=== PATIENT | female | born 1980 | race Caucasian/White ===

== ENCOUNTER 2016-12-26 09:56 | Emergency (ER) | payer MEDICAID, OTHER ==
--- NOTE | 2016-12-26 10:13 | ED Physician Documentation ---
General Adult - HISTORIAN Historian: patient - HPI Stated Complaint: dental pain Chief Complaint: General Adult Onset: days ago Timing: still present Severity: moderate Further Comments: yes (Pt is a 36 yo female with dental pain on the L side. Pt has poor dentition with caries in both upper and lower L molars.) - ROS CONST: no problems EYES/ENT: other (dental pain) CVS/RESP: none GI/: none MS/SKIN/LYMPH: none - PAST HX Past History: other (anxiety, migraines, ) Surgeries/Procedures: cholecystectomy, other (d&c, b/l partial mastectomy due to infected cysts.) Allergies/Adverse Reactions: Allergies Allergy/AdvReac Type Severity Reaction Status Date / Time clindamycin AdvReac Generalized Verified 12/26/16 10:11 Redness Home Medications: Ambulatory Orders Medication Instructions Recorded Clonazepam [Klonopin] 1 mg PO BID 12/26/16 Topiramate [Topamax] 25 mg PO BID 12/26/16 Trazodone HCl [Desyrel] 100 mg PO HS 12/26/16 Venlafaxine HCl [Effexor Xr] 75 mg PO DAILY 12/26/16 - SOCIAL HX Smoking History: cigarettes - FAMILY HX Family History: No - REVIEWED ASSESSMENTS Nursing Assessment Reviewed: Yes Vitals Reviewed: Yes Progress - Progress Progress: Rx Penicillin VK 500 mg. Take one every 8 hrs for 10 days. 1 RF Rx [place] (5/325). Take one or two tablets by mouth every 4 to 6 hrs as needed for moderate to severe pain. General Adult Physical Exam - PHYSICAL EXAM GENERAL APPEARANCE: mild distress EENT: other (dental caries, tenderness, L upper & lower molars) NECK: normal inspection, supple RESPIRATORY: no resp distress, chest non-tender CVS: reg rate & rhythm, heart sounds normal BACK: normal inspection SKIN: warm/dry, normal color EXTREMITIES: non-tender, normal range of motion, no evidence of injury, no edema NEURO: oriented X3, motor nml, sensation nml Discharge Clincal Impression: Pain, dental Referrals: Primary Doctor,No [Primary Care Provider] - Condition: Good Disposition: 01 HOME, SELF-CARE Decision to Admit: NO Decision Time: 10:13
[2016-12-26 10:16] VITALS: BP 136/91
== END 2016-12-26 10:25 | disposition home or self-care (01) ==
LOC: ED 09:56 → EDSTATUS 09:57 → ED 10:25
DX: K08.89 Other specified disorders of teeth and supporting structures (principal)
CPT/HCPCS: 99283

== ENCOUNTER 2017-01-27 12:10 | Emergency (ER) | payer MEDICAID, OTHER ==
--- NOTE | 2017-01-27 12:19 | ED Physician Documentation ---
General Adult - HISTORIAN Historian: patient - HPI Stated Complaint: right upper arm/axilla pain for 2 days ago Chief Complaint: Upper Extremity Injury Onset: days ago (2) Timing: still present, worse Severity: moderate Modifying Factors: with clothes touching the area she has incrased pain and touch Quality: sharp Location: right upper arm and and axilla Further Comments: yes (she notes she has had a history of infectious cysts and had part of her breasts removed in regards to this) Last known Well Date: 01/25/17 Last Known Well Time: 08:00 Last known Well Code/Unknown Code: Unknown - ROS CONST: denies: fever, recent illness EYES/ENT: denies: problems with vision, sore throat, nasal drainage CVS/RESP: chest pain (she has had a recent cardiac work up ) GI/: nausea, diarrhea. denies: abdominal pain, problems urinating, vomiting MS/SKIN/LYMPH: other (the right upper chest/breast does have some mild swelling ) - PAST HX Past History: other (depression and anxiety ) Other History: other (bilateral partial mastectomy for cysts ) Surgeries/Procedures: other Immunizations: referred to PCP Allergies/Adverse Reactions: Allergies Allergy/AdvReac Type Severity Reaction Status Date / Time clindamycin AdvReac Generalized Verified 01/27/17 12:38 Redness Home Medications: Ambulatory Orders Medication Instructions Recorded Clonazepam [Klonopin] 1 mg PO BID 12/26/16 Topiramate [Topamax] 25 mg PO BID 12/26/16 Trazodone HCl [Desyrel] 100 mg PO HS 12/26/16 Venlafaxine HCl [Effexor Xr] 75 mg PO DAILY 12/26/16 - SOCIAL HX Smoking History: non-smoker Drug Use: none - FAMILY HX Family History: No - VITAL SIGNS Vital Signs: Vital Signs Temp Pulse Resp BP Pulse Ox 136/91 12/26/16 10:25 - REVIEWED ASSESSMENTS Nursing Assessment Reviewed: Yes Vitals Reviewed: Yes ED Results Lab/Radiology - Radiology Radiology Impressions: Examination: PA and lateral chest. History: Evaluate lung brown. Findings: PA lateral chest demonstrate a normal cardiac and mediastinal silhouette. No focal infiltrate. No blunting of the costophrenic margins. Osseous structures are appropriate for age. Impression: No acute pulmonary process. Electronically signed on Jan 27, 2017 1:09:23 PM FREIGHT CONDUCTOR by: Oren Fox Examination: Ultrasound vein. History: Upper extremity swelling Comparison exams: None provided Findings: Sonographic evaluation of the upper extremity venous system including the internal jugular, subclavian, axillary, cephalic, brachial, basilic, radial , and ulnar veins. No evidence for luminal filling defect. Normal compressibility. Normal response to augmentation and respiratory variation. Impression: No evidence for venous thrombosis. Electronically signed on Jan 27, 2017 1:32:59 PM FREIGHT CONDUCTOR by: Oren Fox General Adult Physical Exam - PHYSICAL EXAM GENERAL APPEARANCE: no distress EENT: eye inspection normal RESPIRATORY: no resp distress, chest non-tender, breath sounds normal CVS: reg rate & rhythm, heart sounds normal, equal pulses, no murmur ABDOMEN: soft, no organomegaly, normal bowel sounds BACK: normal inspection SKIN: other (upper right arm/axilla area with mild swelling - pain to touch, pain down arm to wrist - pain with pronation of wrist to mid arm ) EXTREMITIES: normal range of motion NEURO: oriented X3, CN's nml as tested, motor nml Discharge Referrals: Primary Doctor,No [Primary Care Provider] - 2 Days
[2017-01-27 13:28] LABS: BASOPHILS % 0.5 (0.0-1.5); EOSINOPHILS % 2.2 % (0.0-6.8); MEAN CORPUSCULAR HEMOGLOBIN 27.1 pg (28.0-34.0); MEAN CORPUSCULAR VOLUME 83.5 fl (80.0-100.0); MONOCYTES % 3.1 % (0.0-11.0)
[2017-01-27 13:44] LABS: eGFR (African) > 60; eGFR (Non-African) > 60
[2017-01-27] MEDS: KETOROLAC TROMETHAMINE 30 MG/1ML VIAL IVP ONE (13:44)
[2017-01-27] MEDS: methylPREDNISolone SOD SUCC 125 MG/2 ML VIAL IVP ONE (13:44)
[2017-01-27 13:59] VITALS: BP 130/87
--- NOTE | 2017-01-27 15:39 | Diagnostic Imaging Report ---
MADHAVI ALEXANDER [facility] [address] [facility] [address] [address] Report Submission Date: Jan 27, 2017 1:32:59 PM OBSTETRICS TECHNICIAN Patient Study Name: WILLIAM HARRIS Date: Jan 27, 2017 1:02:40 PM OBSTETRICS TECHNICIAN Modality Type: US Gender: F Description: UNILAT LTD STDY EXT VEINS : 82 Institution: [facility] Physician: MADHAVI ALEXANDER Examination: Ultrasound vein. History: Upper extremity swelling Comparison exams: None provided Findings: Sonographic evaluation of the upper extremity venous system including the internal jugular, subclavian, axillary, cephalic, brachial, basilic, radial , and ulnar veins. No evidence for luminal filling defect. Normal compressibility. Normal response to augmentation and respiratory variation. Impression: No evidence for venous thrombosis. Electronically signed on Jan 27, 2017 1:32:59 PM OBSTETRICS TECHNICIAN by: Oren RIVERS
--- NOTE | 2017-01-27 15:41 | Diagnostic Imaging Report ---
MADHAVI ALEXANDER [facility] [address] [facility] [address] [place], [place]. [address] Report Submission Date: Jan 27, 2017 1:09:23 PM CLEANING MACHINE OPERATOR Patient Study Name: WILLIAM HARRIS Date: Jan 27, 2017 12:55:35 PM CLEANING MACHINE OPERATOR Modality Type: CR Gender: F Description: CHEST : 82 Institution: [facility] Physician: MADHAVI ALEXANDER Examination: PA and lateral chest. History: Evaluate lung brown. Findings: PA lateral chest demonstrate a normal cardiac and mediastinal silhouette. No focal infiltrate. No blunting of the costophrenic margins. Osseous structures are appropriate for age. Impression: No acute pulmonary process. Electronically signed on Jan 27, 2017 1:09:23 PM CLEANING MACHINE OPERATOR by: Oren RIVERS
== END 2017-01-27 13:57 | disposition home or self-care (01) ==
LOC: ED 12:10
DX: M79.621 Pain in right upper arm (principal)
CPT/HCPCS: 71020; 80053; 85025; 85379; 93971; J1885; J2930; 96372; 99283; S1016

== ENCOUNTER 2017-05-18 08:06 | Emergency (ER) | payer MEDICAID, OTHER ==
--- NOTE | 2017-05-18 08:16 | ED Physician Documentation ---
General Adult - HISTORIAN Historian: patient - HPI Chief Complaint: Abdominal Pain Additional Information: About 10 days ago developed some diarrhea and fever/chills. No blood noted. Over the last 3-4 days the diarrhea is improved. Has had normal BM since then. Has devleoped some abd cramping in the lower abd area bilater. Dull achy sensation all the time but will cramp up for about one minute and pain will get to 8-9/10. Patient is still on a bland diet. No urinary problems. Hips feels like she has bruising to the area but not skin changes. Started at the same time. Onset: other (10 days) Timing: still present Severity: moderate Further Comments: no - ROS CONST: fever, sweating, chills EYES/ENT: none CVS/RESP: none. denies: chest pain, shortness of breath GI/: denies: problems urinating, vomiting, nausea, diarrhea MS/SKIN/LYMPH: denies: calf pain NEURO/PSYCH: denies: headache, dizziness - PAST HX Past History: none Other History: none Surgeries/Procedures: cholecystectomy, hysterectomy, other (D&C) Allergies/Adverse Reactions: Allergies Allergy/AdvReac Type Severity Reaction Status Date / Time clindamycin AdvReac Generalized Verified 05/18/17 08:21 Redness Home Medications: Ambulatory Orders Medication Instructions Recorded Clonazepam [Klonopin] 1 mg PO BID 12/26/16 Topiramate [Topamax] 25 mg PO BID 12/26/16 Trazodone HCl [Desyrel] 100 mg PO HS 12/26/16 Venlafaxine HCl [Effexor Xr] 75 mg PO DAILY 12/26/16 - SOCIAL HX Smoking History: non-smoker Alcohol Use: none Drug Use: none - FAMILY HX Family History: No - VITAL SIGNS Vital Signs: Vital Signs Temp Pulse Resp BP Pulse Ox 130/87 01/27/17 13:57 - REVIEWED ASSESSMENTS Nursing Assessment Reviewed: Yes Vitals Reviewed: Yes Progress - Progress Progress: 10:44 Patient has been doing OK, has had a couple of mild cramps 14:00 [facility] contacted to inquire about possible transfer, awaiting call back. 14:11 Transfer excepted. ED Results Lab/Radiology - Radiology Radiology Impressions: Examination: Obstruction series History: PT STATES LOWER ABDOMINAL PAIN X 4 DAYS, DIARRHEA X 5 DAYS (Hx) Findings: 5 views obtained of the chest and abdomen. No focal infiltrate. Normal cardiac silhouette. No abnormal dilation of the large bowel. Single loop of prominent small bowel within the left upper abdomen. Air and stool throughout the large bowel. No suspicious calcification projecting over the renal fossa or the lower pelvic region. Surgical clips right upper quadrant. Articular degenerative changes. Impression: No infiltrate/effusion. Nonspecific prominent loop of small bowel within the left upper abdomen. No obstruction. No suspicious calcifications by plain film sensitivity. Examination: CT Abdomen/pelvis History: LOWER ABD PAIN X 4 DAYS (Hx) Comparison exams: None available Technique: CT Abdomen/pelvis with IV protocol. Findings: Liver demonstrates diffuse low attenuation. No central lesion. Spleen , adrenals, pancreas, and kidneys are without gross irregularity. No abnormal enhancement. Surgical clips gallbladder fossa. 3.5 cm right renal cyst with peripheral calcification. No other suspicious renal calcifications. Ureters are nondilated in their course through the abdomen and pelvis. No central calcifications. Abdominal aorta without aneurysm. Cardiac silhouette is not enlarged. No pericardial effusion. Mildly prominent loops of small bowel within the left midabdomen with air-fluid levels. Stool within the large bowel. Appendix is visualized and is within normal limits. Sigmoid diverticula. Significant inflammatory changes/mucosal thickening involving the sigmoid colon. Adjacent to the mid sigmoidal region is a vague density measuring 2 cm diameter with air centrally. Osseous structures demonstrate mild degenerative spurring. Lung bases demonstrate mild scarring. Linear infiltrate involving the lingula. No effusion. Impression: Sigmoid diverticulitis. Possible perforation with loculated fluid collection/abscess adjacent to the mid aspect of the sigmoid colon. Prominent small bowel with air-fluid levels - functional ileus verses enteritis. Fatty liver. Right renal cyst with peripheral calcification - Bosniak type II cyst. Follow up recommended to confirm stability. Mild lingular infiltrate. No effusion. General Adult Physical Exam - PHYSICAL EXAM GENERAL APPEARANCE: mild distress () EENT: ENT inspection normal NECK: normal inspection, thyroid normal, supple RESPIRATORY: no resp distress, chest non-tender, breath sounds normal. No: wheezes, rales, rhonchi CVS: reg rate & rhythm, heart sounds normal, equal pulses, no murmur, no gallop ABDOMEN: soft, no organomegaly, normal bowel sounds, no abdominal bruit, no distension, tenderness (suprapubic area) BACK: normal inspection, no CVA tenderness SKIN: warm/dry, normal color EXTREMITIES: non-tender NEURO: oriented X3, mood/affect nml, cognition normal Discharge Clincal Impression: Diverticulitis large intestine Qualifiers: Diverticulitis bleeding: without bleeding Diverticulitis complication: with perforation and abscess Qualified Code(s): K57.20 - Diverticulitis of large intestine with perforation and abscess without bleeding Referrals: Michael Sun MD [Primary Care Provider] - 2 Days Condition: Stable Disposition: [facility] Decision to Admit: [id number] Date of Decison to Admit: 05/18/17 Decision Time: 13:38
[2017-05-18 08:20] VITALS: BP 136/81
[2017-05-18] MEDS: 0.9 % SODIUM CHLORIDE 1,000 ML IV SCH (09:00)
[2017-05-18] MEDS: KETOROLAC TROMETHAMINE 30 MG/1ML VIAL IVP ONE (09:00)
--- NOTE | 2017-05-18 09:54 | Diagnostic Imaging Report ---
DYLAN HARRISON [facility] [address] [facility] [address] [address] Report Submission Date: May 18, 2017 9:53:21 AM SITE COORDINATOR Patient Study Name: WILLIAM HARRIS Date: May 18, 2017 9:14:06 AM SITE COORDINATOR Modality Type: DX Gender: F Description: CHEST,ABDOMEN : 82 Institution: [facility] Physician: DYLAN HARRISON Examination: Obstruction series History: PT STATES LOWER ABDOMINAL PAIN X 4 DAYS, DIARRHEA X 5 DAYS (Hx) Findings: 5 views obtained of the chest and abdomen. No focal infiltrate. Normal cardiac silhouette. No abnormal dilation of the large bowel. Single loop of prominent small bowel within the left upper abdomen. Air and stool throughout the large bowel. No suspicious calcification projecting over the renal fossa or the lower pelvic region. Surgical clips right upper quadrant. Articular degenerative changes. Impression: No infiltrate/effusion. Nonspecific prominent loop of small bowel within the left upper abdomen. No obstruction. No suspicious calcifications by plain film sensitivity. Electronically signed on May 18, 2017 9:53:21 AM SITE COORDINATOR by: Oren RIVERS
[2017-05-18 09:56] LABS: BASOPHILS % 0.3 (0.0-1.5); EOSINOPHILS % 0.6 % (0.0-6.8); MEAN CORPUSCULAR HEMOGLOBIN 27.4 pg (28.0-34.0); MONOCYTES % 3.3 % (0.0-11.0); NEUTROPHILS # 9.3 # k/uL (1.4-7.7)
[2017-05-18 10:12] LABS: eGFR (African) > 60; eGFR (Non-African) > 60
--- NOTE | 2017-05-18 12:52 | Diagnostic Imaging Report ---
DYLAN HARRISON [facility] [address] [facility] [address] [place] [address]. [address] Report Submission Date: May 18, 2017 12:45:53 PM COMMUNITY NUTRITION EDUCATOR Patient Study Name: WILLIAM HARRIS D Date: May 18, 2017 12:00:54 PM COMMUNITY NUTRITION EDUCATOR Modality Type: CT\SR Gender: F Description: CT A/P W/ CONTRAST : 82 Institution: [facility] Physician: DYLAN HARRISON Examination: CT Abdomen/pelvis History: LOWER ABD PAIN X 4 DAYS (Hx) Comparison exams: None available Technique: CT Abdomen/pelvis with IV protocol. Findings: Liver demonstrates diffuse low attenuation. No central lesion. Spleen , adrenals, pancreas, and kidneys are without gross irregularity. No abnormal enhancement. Surgical clips gallbladder fossa. 3.5 cm right renal cyst with peripheral calcification. No other suspicious renal calcifications. Ureters are nondilated in their course through the abdomen and pelvis. No central calcifications. Abdominal aorta without aneurysm. Cardiac silhouette is not enlarged. No pericardial effusion. Mildly prominent loops of small bowel within the left midabdomen with air-fluid levels. Stool within the large bowel. Appendix is visualized and is within normal limits. Sigmoid diverticula. Significant inflammatory changes/mucosal thickening involving the sigmoid colon. Adjacent to the mid sigmoidal region is a vague density measuring 2 cm diameter with air centrally. Osseous structures demonstrate mild degenerative spurring. Lung bases demonstrate mild scarring. Linear infiltrate involving the lingula. No effusion. Impression: Sigmoid diverticulitis. Possible perforation with loculated fluid collection/abscess adjacent to the mid aspect of the sigmoid colon. Prominent small bowel with air-fluid levels - functional ileus verses enteritis. Fatty liver. Right renal cyst with peripheral calcification - Bosniak type II cyst. Follow up recommended to confirm stability. Mild lingular infiltrate. No effusion. Electronically signed on May 18, 2017 12:45:53 PM COMMUNITY NUTRITION EDUCATOR by: Oren RIVERS
[2017-05-18] MEDS: CIPROFLOXACIN/D5W 400 MG in PREMIX BAG 1 BAG IV ONE (13:50)
[2017-05-18] MEDS: CIPROFLOXACIN/D5W 200 ML IV ONE (14:42)
[2017-05-18] MEDS: fentaNYL CITRATE/PF 100 MCG/ 2ML AMP IVP ONE (14:45)
[2017-05-18] MEDS: metroNIDAZOLE/SODIUM CHLORIDE 500 MG in PREMIX BAG 1 BAG IV ONE (14:47)
[2017-05-18] MEDS: metroNIDAZOLE/SODIUM CHLORIDE 100 ML IV ONE (15:39)
[2017-05-18] MEDS: 0.9 % SODIUM CHLORIDE 1,000 ML IV ONE (15:39)
[2017-05-18] MEDS: fentaNYL CITRATE/PF 100 MCG/ 2ML AMP ONE (15:39)
[2017-05-19 06:10] LABS: APPEARANCE,URINE CLEAR (CLEAR); COLOR,URINE AMBER (YELLOW); OCCULT BLOOD,URINE NEGATIVE (NEGATIVE); PH URINE 5.5 (5.0 - 8.0)
== END 2017-05-18 14:47 | disposition short-term general hospital (02) ==
LOC: ED 08:06
DX: K57.20 Diverticulitis of large intestine with perforation and abscess without bleeding (principal); K76.0 Fatty (change of) liver, not elsewhere classified; N28.1 Cyst of kidney, acquired
CPT/HCPCS: 36415; 74022; 74177; 80053; 83690; 85025; 87040; J0744; J1885; J3010; J7030; Q9966; 81002; 81025; 87086; 96365; 96367; 96375; 99284; Q9967; S1016

== ENCOUNTER 2017-05-26 19:09 | Emergency (ER) | payer MEDICAID, OTHER ==
[2017-05-26] MEDS ORDERED: 0.9 % SODIUM CHLORIDE 1,000 ML IV ONE (19:51)
[2017-05-26] MEDS: 0.9 % SODIUM CHLORIDE 1,000 ML IV SCH (19:55)
[2017-05-26] MEDS: fentaNYL CITRATE/PF 100 MCG/ 2ML AMP ONE (19:59)
[2017-05-26] MEDS: fentaNYL CITRATE/PF 100 MCG/ 2ML AMP IVP ONE (19:59)
[2017-05-26 20:01] LABS: MEAN CORPUSCULAR HEMOGLOBIN 27.3 pg (28.0-34.0); MEAN CORPUSCULAR VOLUME 85.3 fl (80.0-100.0)
[2017-05-26] MEDS: ONDANSETRON HCL/PF 4 MG/ 2ML VIAL IVP ONE (20:04)
[2017-05-26 20:20] LABS: eGFR (African) > 60; eGFR (Non-African) > 60
[2017-05-26] MEDS: MORPHINE SULFATE 4 MG/ML PREFILLED SYR IVP ONE (20:25)
[2017-05-26] MEDS: PIPERACILLIN SODIUM/TAZOBACTAM 3.375 GM VIAL IV SCH (21:20)
[2017-05-26] MEDS: PIPERACILLIN SODIUM/TAZOBACTAM 3.375 GM VIAL IV ONE (21:31)
[2017-05-26] MEDS: metroNIDAZOLE/SODIUM CHLORIDE 100 ML IV ONE (21:31)
[2017-05-26] MEDS: 0.9 % SODIUM CHLORIDE 250 ML IV ONE (21:31)
[2017-05-26] MEDS: metroNIDAZOLE/SODIUM CHLORIDE 500 MG in PREMIX BAG 1 BAG IV ONE (21:56)
--- NOTE | 2017-05-26 21:57 | ED Physician Documentation ---
Abdominal Pain - HISTORIAN Historian: patient, spouse - HPI Stated Complaint: Lower abdominal pain Chief Complaint: Abdominal Pain Additonal Information: lower abd pain clark supra pubic area onset last week dx here DR HARRISON diverticulitis [facility] tx in patient w/ cipro and flagyl rel wednesday doing well wed then sudden onset exab pain today. rates 9/10 still taking cip[ro and flagyl as directed. Onset: days ago (today) Duration: constant (prev it was exavb and remission now constant) Timing: worse Context: denies: out of country travel, bad food Severity: moderate, severe Quality: pain, burning, fullness Associated Symptoms: nausea. denies: vomiting Exacerbated by: movements Relieved by: nothing - ROS CONST: no problems GI/: none (having bm's) CVS/RESP: none EYES/ENT: none MS/SKIN/LYMPH: none NEURO/PSYCH: none - SOCIAL HX Smoking History: less than 1 pack/day Alcohol Use: none Drug Use: marijuana (rarely) - FAMILY HX Family History: no significant history - PAST HX Past History: none Surgeries/Procedures: cholecystectomy (d and c breast removal infected tissue ) Immunizations: UTD Home Medications: Ambulatory Orders Medication Instructions Recorded Clonazepam [Klonopin] 1 mg PO BID 12/26/16 Topiramate [Topamax] 25 mg PO BID 12/26/16 Trazodone HCl [Desyrel] 100 mg PO HS 12/26/16 Venlafaxine HCl [Effexor Xr] 75 mg PO DAILY 12/26/16 Ciprofloxacin [Cipro] 500 mg PO QDAY 05/26/17 Hydrocodone/Acetaminophen 1 each PO Q6H 05/26/17 [Hydrocodon-Acetaminophen 5-325] metroNIDAZOLE [Flagyl] 500 mg PO Q6H 05/26/17 Allergies/Adverse Reactions: Allergies Allergy/AdvReac Type Severity Reaction Status Date / Time clindamycin AdvReac Generalized Verified 05/26/17 19:32 Redness - VITAL SIGNS Vital Signs: Vital Signs Temp Pulse Resp BP Pulse Ox 98.1 F 100 H 22 152/87 97 05/26/17 19:10 05/26/17 19:10 05/26/17 19:10 05/26/17 19:10 05/26/17 19:10 - REVIEWED ASSESSMENTS Nursing Assessment Reviewed: Yes Vitals Reviewed: Yes ED Results Lab/Radiology - Lab Results Lab Results: Lab Results 05/26/17 05/26/17 05/26/17 19:53 19:53 19:53 WBC 16.80 K/ul H K/ul (4.00-12.00) RBC 4.91 M/ul M/ul (3.90-5.20) Hgb 13.4 g/dL g/dL (12.0-16.0) Hct 41.9 % % (34.5-46.5) MCV 85.3 fl fl (80.0-100.0) MCH 27.3 pg L pg (28.0-34.0) MCHC 32.1 g/dL g/dL (30.0-36.0) RDW 14.3 % % (11.3-14.3) Plt Count 339 K/mm3 K/mm3 (130-400) Neut % (Auto) 88.1 % H % (39.0-79.0) Lymph % (Auto) 7.8 % L % (16.0-50.0) [place] % (Auto) 2.2 % % (0.0-11.0) Eos % (Auto) 1.0 % % (0.0-6.8) Baso % (Auto) 0.4 (0.0-1.5) Neut # (Auto) 14.8 # k/uL H # k/uL (1.4-7.7) Lymph # (Auto) 1.3 # k/uL # k/uL (0.6-4.0) [place] # (Auto) 0.4 # k/uL # k/uL (0.0-0.9) Eos # (Auto) 0.2 # k/uL # k/uL (0.0-0.6) Baso # (Auto) 0.1 # k/uL # k/uL (0.0-0.5) Reactive Lymphs % 0.5 % % (0.0-5.0) Reactive Lymphs # 0.1 # k/uL # k/uL (0.0-0.8) Sodium 140 mmol/L mmol/L (136-145) Potassium 3.9 mmol/L mmol/L (3.5-5.1) Chloride 105 mmol/L mmol/L (98-107) Carbon Dioxide 22 mmol/L mmol/L (22-30) BUN 11 mg/dL mg/dL (7-17) Creatinine 0.90 mg/dL mg/dL (0.52-1.04) Estimated Creat Clear 202 Est GFR ( Amer) > 60 (60 - ) Est GFR (Non-Af Amer) > 60 (60 - ) Glucose 121 mg/dL H mg/dL (74-106) Calcium 8.8 mg/dL mg/dL (8.4-10.2) Total Bilirubin 0.6 mg/dL mg/dL (0.2-1.3) AST 23 U/L U/L (15-46) ALT 38 U/L U/L (13-69) Alkaline Phosphatase 61 U/L U/L (38-126) Total Protein 6.6 g/dL g/dL (6.3-8.2) Albumin 3.6 g/dL g/dL (3.5-5.0) Lipase 51 U/L U/L (23-300) - Radiology Radiology Impressions: ct rev abscess innerloop bowel abscess yola small bowel plus diverticulitis - Orders Orders: ED Orders Category Date Time Status CT ABD & PELVIS W/ CON Stat Exams 05/26/17 Taken CBC/PLATELET/DIFF Routine Lab 05/26/17 19:53 Completed CMP Routine Lab 05/26/17 19:53 Completed LIPASE Stat Lab 05/26/17 19:53 Completed URINALYSIS Routine Lab 05/26/17 Ordered 0.9 % Sodium Chloride [Normal Saline] 1,000 ml Med 05/26/17 19:30 Ordered IV Q10H 0.9 % Sodium Chloride [Sodium Chloride] 250 ml Med 05/26/17 21:22 Discontinued IV .STK-MED Morphine Sulfate [DepoDUR] Med 05/26/17 20:25 Discontinued 4 mg IVP NOW ONE Ondansetron HCl/Pf [Zofran 4 mg/2 ml] Med 05/26/17 19:57 Discontinued 4 mg IVP NOW ONE Piperacillin Sodium/Tazobactam [Zosyn] Med 05/26/17 21:22 Discontinued 3.375 gm IV .STK-MED ONE Piperacillin Sodium/Tazobactam [Zosyn] Med 05/26/17 21:30 Ordered 3.375 gm IV Q6 fentaNYL CITRATE/PF [Duragesic] Med 05/26/17 19:52 Discontinued 100 mcg .ROUTE .STK-MED ONE fentaNYL CITRATE/PF [Duragesic] Med 05/26/17 19:50 Discontinued 100 mcg IVP NOW ONE metroNIDAZOLE/SODIUM CHLORIDE [Flagyl] 100 ml Med 05/26/17 21:22 Discontinued IV .STK-MED metroNIDAZOLE/SODIUM CHLORIDE [Flagyl] 500 mg Med 05/26/17 21:22 Active Premix Bag [Premix Fluid] 1 bag IV NOW Abdominal Pain Physical Exam - Physical Exam General Appearance: moderate distress EENT: eye inspection normal NECK: normal inspection, thyroid normal, supple RESPIRATORY: no resp distress, breath sounds normal CVS: reg rate & rhythm, heart sounds normal ABDOMEN: soft, decreased BS, rebound, guarding (clark supra pubic area) SKIN: normal color. No: cyanosis, diaphoresis, jaundice EXTREMITIES: non-tender, normal range of motion NEURO: mood/affect nml Vital Signs: Vital Signs Temp Pulse Resp BP Pulse Ox 98.1 F 100 H 22 152/87 97 05/26/17 19:10 05/26/17 19:10 05/26/17 19:10 05/26/17 19:10 05/26/17 19:10 Discharge Clincal Impression: intestinal abscess small bowel, diverticulitis Referrals: Michael Sun MD [Primary Care Provider] - 2 Days Comments: called [facility] - He will accept as inpatient Condition: Fair Disposition: 02 [facility] Decision to Admit: [id number] Decision Time: 22:04
[2017-05-26 22:19] VITALS: BP 120/68
[2017-05-27 06:55] LABS: SEGMENTED NEUTROPHILS % 69 % (39-79)
[2017-05-27 06:56] LABS: BASOPHILS % 0 % (0-2); EOSINOPHILS % 2 % (0-7); MONOCYTES % 5 % (0-11); PLT EST. EST. AGREES W/PLT CT; TOXIC VACUOLATION PRESENT
--- NOTE | 2017-05-27 08:00 | Diagnostic Imaging Report ---
KEITH RODRIGUEZ~ [facility] [address] [facility].[address] [address] ~ ~ ~ ~ Report Submission Date: May 26, 2017 9:10:23 PM CDT Patient ~ Study Name: WILLIAM HARRIS ~ Date: May 26, 2017 8:37:41 PM CDT ~ Modality Type: CT\SR Gender: F ~ Description: CT ABD/PELVIS W/CONT : 82 ~ Institution: [facility] Physician: KEITH RODRIGUEZ ~ ~ ~ Computed tomography Abdomen/pelvis with contrast History: Abdominal and pelvic pain and low back pain Findings: Transverse abdomen and pelvic sections are obtained after 93 mL intravenous omnipaque Hepatic steatosis, mild splenomegaly, obesity, cholecystectomy, and normal appendix are observed. 3 right renal cysts are observed. 1 exhibits benign- appearing peripheral calcification. The adrenals, pancreas, left kidney, great vessels, and mesenteric structures are unremarkable. Several descending colon diverticula are present. Abdominal bowel loops are otherwise normal. Pelvic sections reveal acute sigmoid diverticulitis with a poorly delineated interloop abscess extending between small bowel loops. This potentially measures up to 4 x 2.5 x 2.6 cm. The urinary bladder, uterus, and ovaries are unremarkable. Impression: 1. Acute sigmoid diverticulitis with small interloop pelvic abscess. 2. Obesity complicated by hepatic steatosis and mild splenomegaly. 3. Cholecystectomy and right renal cysts noted. ~ Electronically signed on May 26, 2017 9:10:23 PM CDT by: Jose RIVERS
== END 2017-05-26 22:15 | disposition short-term general hospital (02) ==
LOC: ED 19:09
DX: K57.00 Diverticulitis of small intestine with perforation and abscess without bleeding (principal)
CPT/HCPCS: 74177; 80053; 83690; 85025; J2270; J2405; J2543; J3010; J3490; J7030; 96365; 96366; 96375; 99284; Q9967; S1016

== ENCOUNTER 2019-03-12 16:17 | Emergency (ER) | payer MEDICAID, OTHER ==
--- NOTE | 2019-03-12 16:29 | ED Physician Documentation ---
Sore Throat/Dental Pain - HISTORIAN Historian: patient - HPI Chief Complaint: Dental Pain Additional Information: 38 year old female presents with c/o right sided dental pain; states that discomfort started this morning; has not been to the dentist in years; multiple dental caries; she states that she has been trying ibuprofen; she also has a slight rash to the right cheek. She states that she will call dentist office in the morning. Onset: hours Context: Dental Caries, Possible Infection Associated Symptoms: denies: fever, chills Worsened By: cold. denies: heat - ROS CONST: no problems CVS/RESP: none GI/: denies: nausea, vomiting MS/SKIN/LYMPH: denies: muscle aches, rash NEURO/PSYCH: none - PAST HX Past History: other (fibromyalgia) Other History: none Immunizations: UTD Allergies/Adverse Reactions: Allergies Allergy/AdvReac Type Severity Reaction Status Date / Time clindamycin AdvReac Generalized Verified 03/12/19 16:39 Redness Home Medications: Ambulatory Orders Medication Instructions Recorded Clonazepam [Klonopin] 1 mg PO BID 12/26/16 Topiramate [Topamax] 25 mg PO BID 12/26/16 Trazodone HCl [Desyrel] 100 mg PO HS 12/26/16 Venlafaxine HCl [Effexor Xr] 75 mg PO DAILY 12/26/16 Ciprofloxacin [Cipro] 500 mg PO QDAY 05/26/17 Hydrocodone/Acetaminophen 1 each PO Q6H 05/26/17 [Hydrocodon-Acetaminophen 5-325] metroNIDAZOLE [Flagyl] 500 mg PO Q6H 05/26/17 - SOCIAL HX Smoking History: greater than 1 pack/day Alcohol Use: none Drug Use: none - FAMILY HX Family History: No - VITAL SIGNS Vital Signs: Vital Signs Temp Pulse Resp BP Pulse Ox 120/68 05/26/17 22:15 - REVIEWED ASSESSMENTS Nursing Assessment Reviewed: Yes Vitals Reviewed: Yes Dental Pain Physical Exam - EXAM General Appearance: no acute distress, alert Head/Neck: head nml inspection, trachea midline, no lymphadenopathy, neck nml inspection Eyes: eyes nml inspection, PERRL Mouth/Throat: lips nml, gums nml, pharynx nml, voice nml, no drooling, no air way problems, membranes nml, dental tenderness, widespread dental decay Ear/Nose: nml inspection Respiratory: breath sounds nml CVS: heart sounds nml Abdomen: soft, normal bowel sounds Extremities: nml ROM Skin: warm/dry, normal color Neuro/Psych: none Discharge Clincal Impression: Pain, dental Referrals: Primary Doctor,No [Primary Care Provider] - 2 Days Additional Instructions: Take Amoxil (antibiotic) 500 mg by mouth 3 times a day for 10 days Naproxen 500mg by mouth twice a day for 10 days- called in [facility] Warm salt water gargles 4 times a day Continue with Tylenol 500mg- 1000mg every 6 hours as needed for pain Continue to use orajel or anbasol Follow up with Dentist SHILPA Condition: Good Disposition: 01 HOME, SELF-CARE Decision to Admit: NO Decision Time: 17:18
[2019-03-12 16:42] VITALS: BP 177/106
== END 2019-03-12 16:40 | disposition home or self-care (01) ==
LOC: ED 16:17
DX: K08.89 Other specified disorders of teeth and supporting structures (principal); F17.210 Nicotine dependence, cigarettes, uncomplicated
CPT/HCPCS: 99282